=== PATIENT | female | born 1955 | race Caucasian/White ===

== ENCOUNTER 2018-11-27 13:45 | Emergency (ER) | payer BC ==
[~2018-11-27] VITALS: Ht 165.1 cm; Wt 71.7 kg
[2018-11-27] MEDS ORDERED: ETOMIDATE IV SOLN 20 MG/10 ML VIAL IV ONE ×2 (13:47→15:30)
[2018-11-27] MEDS ORDERED: ROCURONIUM 10 MG/ML 5 ML SYRINGE IV ONE ×2 (13:47→15:30)
[2018-11-27] MEDS ORDERED: NS IV 1000 ML 1,000 ML IV SCH ×2 (14:03→14:20)
--- NOTE | 2018-11-27 14:11 | ED Cardiac General ---
History of Present Illness General Stated Complaint: SOB Source: patient, EMS Exam Limitations: no limitations (AURY SIMPSON) History of Present Illness Date Seen by Provider: Nov 27, 2018 Time Seen by Provider: 13:56 Initial Comments Patient presents to ER by EMS from [place], [place] with chief complaint she's been feeling chest discomfort nurse in her chest radiating to her left chest. She is also felt tired and short of breath. Recently she was put on amoxicillin outpatient for a pneumonia and told she had a new onset CHF. She is on Lasix and potassium and has a cardiac catheterization scheduled tomorrow with Dr. Yeager. She denies ever having a heart attack. She does have diabetes and takes Levemir twice a day but she's not taken it today. Blood sugar was over 300 per EMS. She says she has mild shortness of breath visual cough nonproductive. No fevers or chills. Her brother relates that she had a recent stay at [facility] for a impacted gallstone and they had put a stent in and do an ERCP and she's been a couple days there. Also some of the dye she received ended up and some kind of an acute kidney injury. (AURY SIMPSON) Allergies and Home Medications Allergies Coded Allergies: codeine (Verified Adverse Reaction, Unknown, 11/27/18) morphine (Verified Adverse Reaction, Unknown, 11/27/18) Patient Home Medication List Home Medication List Reviewed: Yes (AURY SIMPSON) Review of Systems Review of Systems Constitutional: No chills, No fever EENTM: No Blurred Vision, No Double Vision Respiratory: Cough, Shortness of Air (AURY SIMPSON) Physical Exam Vital Signs Vital Signs - First Documented 11/27/18 11/27/18 13:53 15:41 Temp 98.0 Pulse 153 Resp 23 B/P (MAP) 74/59 (64) Pulse Ox 93 O2 Delivery Nasal Cannula O2 Flow Rate 2.00 FiO2 100 (LING BRANCH APRN) Vital Signs Capillary Refill : (AURY SIMPSON) Height, Weight, BMI Height: '" Weight: lbs. oz. kg; BMI Method: General Appearance: Anxious, Moderate Distress HEENT: PERRL/EOMI, Pharynx Normal; No Moist Mucous Membranes Neck: Full Range of Motion, Normal Inspection, Non Tender, Supple Respiratory: Chest Non Tender, Lungs Clear, Accessory Muscle Use, Decreased Breath Sounds, Respiratory Distress (mild to moderate) Cardiovascular: No JVD, No Murmur, Normal Peripheral Pulses, Irregularly Irregular, Other (1+ pitting peripheral edema at the ankle bilateral) Gastrointestinal: Normal Bowel Sounds, Non Tender, Soft Extremity: Normal Capillary Refill, Normal Inspection, Non Tender Neurologic/Psychiatric: Alert, Oriented x3 Skin: Warm/Dry, Pallor (AURY SIMPSON) Focused Exam Lactate Level 11/27/18 16:05: Lactic Acid Level 5.17*H (LING BRANCH APRN) Lactic Acid Level Laboratory Tests Test 11/27/18 16:05 Lactic Acid Level 5.17 MMOL/L (0.50-2.00) *H (LING BRANCH APRN) Procedures/Interventions Lumen: triple Central Line Procedure: betadine prep, sterile drapes applied, sterile dressing applied Position: internal jugular (R) Anesthesia: local Volume Anesthetic (ccs): 3 Complications: none Post Position: sutured, good blood return, position confirmed w/ CXR (LING BRANCH APRN) Reason for Intubation: airway protection Date of ETT Placement: Nov 27, 2018 Time of ETT Placement: 15:30 Intubation Method: orotracheal Tube Size: 7.5 Medications: Etomidate, Rocuronium (potassium 5.4) Positive End Tide CO2: Yes Breath Sounds after Intubation: bilateral-equal Intubation Complications: no complications Post Intubation Xray: Yes ETT about 1 cm below the pham. IJ in good position in the SVC Risks, benefits alternatives were explained the patient and she consented verbally. Discussed with mother and brother at bedside and they consented as well. Patient was reclined in the supine position and oxygenated with bag-valve- mask at 100% and got her up to 95%. We gave the etomidate followed by the rocuronium chosen because of the elevated potassium. The patient was sedated and paralyzed. We then made 1 pass with the suction Juanjo getting no secretions. With an open the mouth and usual fashion using a 3 Robby obtained a good view of 90% of the vocal cords and pass a 7-1/2 ET tube watching go past the vocal cords. We then halted the progress at 23 at the lips. We inflated the cuff and got a good waveform on end-tidal capnography. She thought the tube with each exhalation. We had good breath sounds bilaterally and no breath sounds over the epigastric region. Her oxygen sats went up to 99%. The lowest they got down to was 91%. Tube was secured and chest x-ray called for. Chest X ray demonstrates the tube advanced just past the pham about 1 senna meter. Radiology recommends we withdraw 47 m. We are going to withdraw 3 cm. (AURY SIMPSON) Progress/Results/Core Measures Results/Orders Lab Results Laboratory Tests Test 11/27/18 14:04 11/27/18 14:13 11/27/18 16:05 11/27/18 16:12 Range/Units White Blood Count 11.5 H 4.3-11.0 10^3/uL Red Blood Count 2.86 L 4.35-5.85 10^6/uL Hemoglobin 8.4 L 11.5-16.0 G/DL Hematocrit 27 L 35-52 % Mean Corpuscular Volume 96 80-99 FL Mean Corpuscular Hemoglobin 29 25-34 PG Mean Corpuscular Hemoglobin Concent 31 L 32-36 G/DL Red Cell Distribution Width 13.3 10.0-14.5 % Platelet Count 276 130-400 10^3/uL Mean Platelet Volume 12.4 H 7.4-10.4 FL Neutrophils (%) (Auto) 76 H 42-75 % Lymphocytes (%) (Auto) 15 12-44 % Monocytes (%) (Auto) 9 0-12 % Eosinophils (%) (Auto) 0 0-10 % Basophils (%) (Auto) 0 0-10 % Neutrophils # (Auto) 8.7 H 1.8-7.8 X 10^3 Lymphocytes # (Auto) 1.7 1.0-4.0 X 10^3 Monocytes # (Auto) 1.0 0.0-1.0 X 10^3 Eosinophils # (Auto) 0.0 0.0-0.3 10^3/uL Basophils # (Auto) 0.0 0.0-0.1 10^3/uL Prothrombin Time 15.9 H 12.2-14.7 SEC INR Comment 1.3 0.8-1.4 Activated Partial Thromboplast Time 30 24-35 SEC D-Dimer 2.69 H 0.00-0.49 UG/ML Sodium Level 136 135-145 MMOL/L Potassium Level 5.4 H 3.6-5.0 MMOL/L Chloride Level 104 98-107 MMOL/L Carbon Dioxide Level 17 L 21-32 MMOL/L Anion Gap 15 H 5-14 MMOL/L Blood Urea Nitrogen 32 H 7-18 MG/DL Creatinine 1.99 H 0.60-1.30 MG/DL Estimat Glomerular Filtration Rate 25 BUN/Creatinine Ratio 16 Glucose Level 247 H 70-105 MG/DL Calcium Level 9.0 8.5-10.1 MG/DL Corrected Calcium 9.5 8.5-10.1 MG/DL Magnesium Level 1.9 1.8-2.4 MG/DL Total Bilirubin 1.2 H 0.1-1.0 MG/DL Aspartate Amino Transf (AST/SGOT) 57 H 5-34 U/L Alanine Aminotransferase (ALT/SGPT) 51 0-55 U/L Alkaline Phosphatase 198 H 40-136 U/L Myoglobin 88.1 10.0-92.0 NG/ML Troponin I 0.341 *H <0.028 NG/ML B-Type Natriuretic Peptide 892.9 H <100.0 PG/ML Total Protein 6.0 L 6.4-8.2 GM/DL Albumin 3.4 3.2-4.5 GM/DL Glucometer 273 H 70-110 MG/DL Lactic Acid Level 5.17 *H 0.50-2.00 MMOL/L Urine Color YELLOW Urine Clarity SLIGHTLY CLOUDY Urine pH 5 5-9 Urine Specific [place] 1.025 H 1.016-1.022 Urine Protein 4+ NEGATIVE Urine Glucose (UA) 1+ H NEGATIVE Urine Ketones NEGATIVE NEGATIVE Urine Nitrite NEGATIVE NEGATIVE Urine Bilirubin NEGATIVE NEGATIVE Urine Urobilinogen NORMAL NORMAL MG/DL Urine Leukocyte Esterase 1+ H NEGATIVE Urine RBC (Auto) 2+ H NEGATIVE Urine RBC 2-5 H /HPF Urine WBC 2-5 /HPF Urine Squamous Epithelial Cells 5-10 /HPF Urine Crystals PRESENT H /LPF Urine Amorphous Sediment FEW MIRA URATES H /LPF Urine Bacteria NONE /HPF Urine Casts NONE /LPF Urine Mucus NEGATIVE /LPF Urine Culture Indicated NO (LING BRANCH APRN) Medications Given in ED Current Medications Medications Dose Ordered Sig/Joseph Route Start Time Stop Time Status Last Admin Dose Admin Aspirin 324 mg ONCE ONCE PO 11/27/18 14:15 11/27/18 14:16 DC 11/27/18 14:20 324 MG Azithromycin 500 mg/Sodium Chloride 250 ml @ 250 mls/hr ONCE ONCE IV 11/27/18 16:15 11/27/18 17:14 DC 11/27/18 16:27 250 MLS/HR Cefepime HCl 2000 mg/Sodium Chloride 50 ml @ 100 mls/hr ONCE ONCE IV 11/27/18 16:15 11/27/18 16:44 DC 11/27/18 16:27 100 MLS/HR Digoxin 0.5 mg ONCE ONCE IV 11/27/18 15:00 11/27/18 15:02 DC 11/27/18 15:24 0.5 MG Diltiazem HCl 10 mg ONCE ONCE IVP 11/27/18 14:30 11/27/18 14:31 DC 11/27/18 14:28 10 MG Enoxaparin Sodium 70 mg ONCE ONCE SC 11/27/18 15:00 11/27/18 15:02 DC 11/27/18 15:17 70 MG Fentanyl Citrate 25 mcg ONCE ONCE IVP 11/27/18 15:30 11/27/18 15:31 DC 11/27/18 15:31 25 MCG Ketamine HCl 100 mg/Sodium Chloride 101 ml @ 0 mls/hr Q0M ONCE IV 11/27/18 17:45 11/27/18 17:46 DC 11/27/18 17:50 30 MLS/HR (LING BRANCH APRN) Vital Signs/I&O 11/27/18 11/27/18 11/27/18 13:53 13:53 15:41 Temp 98.0 Pulse 153 67 Resp 23 18 B/P (MAP) 74/59 (64) Pulse Ox 93 97 99 O2 Delivery Nasal Cannula Nasal Cannula O2 Flow Rate 2.00 2.00 FiO2 100 (LING BRANCH APRN) Progress Progress Note #1: Time: 16:24 Progress Note I don't have any previous creatinine levels to compare to her 1.99 today however with her history of acute kidney injury in the last month or 2 after her impacted gallstone it's possible that this is chronic versus an acute kidney injury. Progress Note #2: Time: 17:23 Progress Note Patient's blood pressure again went down and the heart rate in the 50s so we stopped the Cardizem drip. Blood pressure continues to dwindle low with a map of 55- 60 so we are going to go ahead and start the Levophed. Also ordered ketamine for sedation which may help support the blood pressure at 0.5 mg/m. Pharmacy is mixing it 1 mg per mL. (AURY SIMPSON) Initial ECG Impression Date: Nov 27, 2018 Initial ECG Impression Time: 14:03 Initial ECG Rate: 163 Initial ECG Rhythm: A Fib/Flutter Initial ECG Intervals: QT (488) Initial ECG Impression: Atrial Fibrillation w/RVR Comment Rapid rate makes it difficult to ascertain if there is any significant ST changes. EKG : EKG Time: 15:50 Rate: 68 Rhythm: Normal Sinus Intervals: QT (520) ECG Comparisson: Changed ECG Impression: Normal, Nonspecific Changes Comment Normal sinus rhythm, low voltage, no significant ST elevation or depression. (AURY SIMPSON) Diagnostic Imaging Diagonstic Imaging: Xray Plain Films/CT/US/NM/MRI: chest (1v) Comments NAME: KODY SERRA [facility] REC#: [id number] PHYSICIAN: AURY SIMPSON MD CC: SHERRY MARCUS MD; AURY SIMPSON Page 1 of 1 RADIOLOGY REPORT [facility] [place], [place] CC: SHERRY MARCUS MD; AURY SIMPSON Page 1 of 1 RADIOLOGY REPORT NAME: KODY SERRA [facility] REC#: [id number] PT STATUS: REG ER : 1955 PHYSICIAN: AURY SIMPSON MD ADMIT DATE: 11/27/18/ER Signed Date of Exam: 11/27/18 CHEST 1 VIEW, AP/PA ONLY INDICATION: Shortness of air and low blood pressure. TIME OF EXAM: 02:42 p.m. No prior studies are available for comparison. The heart appears to be enlarged. There is central congestion. There are bibasilar pulmonary infiltrates and bilateral effusions, greater on the right. Upper lung cevallos are clear. No pneumothorax is seen. IMPRESSION: Cardiomegaly and central congestion with bibasilar infiltrates and effusions, right greater. Dictated by: Dictated on workstation # [id number] Dict: 11/27/18 1452 Trans: 11/27/18 1546 Interpreted by: SHERRY MARCUS MD Electronically signed by: SHERRY MARCUS MD 11/27/18 1546 Diagonstic Imaging: Xray Plain Films/CT/US/NM/MRI: chest (1v) Comments NAME: PONCEKODY Brown [facility] REC#: [id number] PHYSICIAN: AURY SIMPSON MD CC: JANEL STRANGE MD; AURY SIMPSON Page 1 of 1 RADIOLOGY REPORT [facility] [place], [place] CC: JANEL STRANGE MD; AURY SIMPSON Page 1 of 1 RADIOLOGY REPORT NAME: PONCEKODY Brown [facility] REC#: [id number] PT STATUS: REG ER : 1955 PHYSICIAN: AURY SIMPSON MD ADMIT DATE: 11/27/18/ER Signed Date of Exam: 11/27/18 CHEST 1 VIEW, AP/PA ONLY INDICATION: Central line placement. Frontal chest obtained at 3:26 p.m. and compared to 11/27/2018 at 2:43 p.m. FINDINGS: There is a new right IJ central catheter tip overlying the upper SVC. There is no change in bibasilar infiltrates, right greater than left, as well as right pleural effusion. There is no pneumothorax following line placement. IMPRESSION: Bibasilar infiltrates, right greater than left, are again noted with right pleural effusion. New right IJ central catheter tip overlies the upper SVC. No pneumothorax following device placement. Dictated by: Dictated on workstation # [id number] Dict: 11/27/18 1532 Trans: 11/27/18 1647 Interpreted by: JANEL STRANGE MD Electronically signed by: JANEL STRANGE MD 11/27/18 1647 Diagonstic Imaging: Xray Plain Films/CT/US/NM/MRI: chest (1v) Comments NAME: KODY SERRA REC#: [id number] PHYSICIAN: AURY SIMPSON MD CC: CLARISSA ZACARIAS MD; AURY SIMPSON Page 2 of 2 RADIOLOGY REPORT [facility] [place] [place] CC: CLARISSA ZACARIAS MD; AURY SIMPSON Page 1 of 2 RADIOLOGY REPORT NAME: KODY SERRA [facility] REC#: [id number] PT STATUS: REG ER : 1955 PHYSICIAN: AURY SIMPSON MD ADMIT DATE: 11/27/18/ER Signed Date of Exam: 11/27/18 CHEST 1 VIEW, AP/PA ONLY INDICATION: Respiratory failure. EXAMINATION: Portable chest at 4 PM. FINDINGS: There is an ET tube with the tip selectively intubating the right mainstem bronchus. The NG tube enters the stomach. The right IJ central line tip projects over the SVC. There is a moderate sized right pleural effusion. There is some volume loss at the left lung base. There is cardiomegaly with pulmonary vascular congestion. IMPRESSION: Pulmonary venous hypertension with right pleural effusion and left basilar atelectasis. There has been interval placement of an endotracheal tube which is selectively intubating the right mainstem bronchus and needs to be withdrawn 4 cm to ensure adequate ventilation of both lungs. CRITICAL FINDING Report given to Dr. Simpson at 4:31 p.m. 11/27/2018/cb Dictated by: Dictated on workstation # [id number] Dict: 11/27/18 1607 Trans: 11/27/18 170 Interpreted by: CLARISSA ZACARIAS MD Electronically signed by: CLARISSA ZACARIAS MD 11/27/181705 Reviewed: Reviewed by Me Diagonstic Imaging: Xray Plain Films/CT/US/NM/MRI: chest (1v) Comments ET tube seen about 2 cm above the pham in good position. Good aeration both lungs with no interval pneumothorax. Reviewed: Reviewed by Me (AURY SIMPSON) Consults : Consulting Physician: OLENA YEAGER MD FACP FAC CCDS Consults Notes Discussed the case multiple times with Dr. Weber. He initially recommended that we do the Cardizem and then agreed with the central line and Levophed or dopamine as necessary to keep the blood pressure up. Finally we told him back to advise him of the elevated troponin and the patient would need intubated and since we do not have ICU available here he agrees with shipping the patient. (AURY SIMPSON Madeleine) Critical Care Note Critical Care Start Time: 15:00 Stop Time: 16:00 Total Time (minutes) 60 Progress Patient's blood pressure came in kind of soft in the 100 systolic range but continued to get worse even before we started the Cardizem. We have already had 2 IVs large-bore in either arm started at 2 L of saline running at flush. Her blood pressure continued to dwindle we gave her the bolus of Cardizem 10 mg. We started her on the drip continue the fluids and tried to reclining her into Trendelenburg but the patient would not tolerate Trendelenburg position. Initial EKG demonstrated a rapid probably atrial fibrillation with rapid ventricular response. Patient has no known history of atrial fibrillation and her symptoms just started today . Patient has a known history of CHF but she had no JVD or hepatojugular reflex or palpable pedal edema or crackles auscultated. Ultrasound of her right IJ demonstrated a plump compressible easily accessible vein demonstrating she was not dehydrated. We explained the risks, benefits and alternatives to central line placement and intubation the patient consented to both. She was satting okay in the mid to low 90s on 3 L by nasal cannula so we went ahead and proceeded with a central line so we can use Levophed as necessary. We have already made consultation with cardiology Dr. Yeager and his initial recommendation was Cardizem. As soon as her blood pressure start taking agreed with Levophed or dopamine with the Cardizem for its vasopressor affects, IV fluids and central line. He also recommended 500 mcg of digoxin IV and since we do not given Eliquis yet Lovenox. The patient was given 324 mg of aspirin when she first arrived. Patient's oxygen saturation began to dip into the upper 80s and 90s and she was having a little harder time breathing but there were no crackles auscultated on the bases. Hepatojugular reflex still not noted. We decided to hold 2 L which would be a 30 mL/kg. When we reclining her again to do the intubation her blood pressure improved up to 100 systolic so we held off on the Levophed. We put an OG tube in after intubation and got a second EKG since she converted to a sinus rhythm about 2-3 minutes prior to our intubation attempt. The EKG did not demonstrate S ST elevation NV. She had a heart rate in the 60s and oxygen saturation in the upper 90s on FiO2 of 1.0. She was intubated and had an OG tube put in and a repeat chest x-ray showed good position. We then obtained urinalysis by Lynn catheter and got blood cultures and since she had a history of being on amoxicillin recently for some outpatient pneumonia we are going to go ahead and cover her with cefepime and azithromycin. D-dimer is pending. We discussed the elevated troponin with Dr. Yeager and we are on ICU diversion here and repeat EKG does not show any ST elevation so he recommends we transport the patient to a higher level of care and since the blood pressures improving and heart rate has come back in a sinus rhythm is recommending we hold off on amiodarone. Lovenox 1 mg/kg SQ. (UARY SIMPSON) Departure Impression Primary Impression: Non-STEMI (non-ST elevated myocardial infarction) Additional Impressions: Atrial fibrillation with rapid ventricular response Respiratory failure, acute Qualified Codes: J96.01 - Acute respiratory failure with hypoxia Airway intubation performed without difficulty Acute kidney injury Disposition: XFER SHT-TRM HOSP Condition: Stable Transfer Time Spoke to Accepting Phy: 16:00 Transfer Progress Notes Discussed the case with Dr. Nieves, grinder set up operator centerless at [facility] and he agrees to accept the patient to the ICU. [facility] not flying right now. We will send by ground ambulance. Transfer Facility: [place], [place]. Method of Transfer: EMS (AURY SIMPSON) Departure-Patient Inst. Referrals: SHERRY MCDONOUGH DO (PCP) Primary Care Physician AURY SIMPSON Nov 27, 2018 14:10 LING BRANCH APRN Nov 27, 2018 18:02
[2018-11-27] MEDS ORDERED: ADENOSINE 6 MG/2 ML (ADENOCARD) VIAL IV ONE (14:15)
[2018-11-27] MEDS ORDERED: ASPIRIN 81 MG CHEW (CHILDREN'S ASA) PO ONE (14:15)
[2018-11-27] MEDS ORDERED: inSUlin (REGULAR) HUMAN 1 UNIT/0.01 ML (CHARGE PER UNIT) SC ONE (14:15)
[2018-11-27 14:20] LABS: BASOPHILS % (AUTO) 0 % (0-10); EOSINOPHILS % (AUTO) 0 % (0-10); HEMATOCRIT 27 % (35-52); HEMOGLOBIN 8.4 G/DL (11.5-16.0); LYMPHOCYTES # (AUTO) 1.7 X 10^3 (1.0-4.0); LYMPHOCYTES % (AUTO) 15 % (12-44); MEAN CORPUSCULAR HEMOGLOBIN 29 PG (25-34); MEAN CORPUSCULAR HGB CONC 31 G/DL (32-36); MEAN CORPUSCULAR VOLUME 96 FL (80-99); MEAN PLATELET VOLUME 12.4 FL (7.4-10.4); MONOCYTES % (AUTO) 9 % (0-12); NEUTROPHILS # (AUTO) 8.7 X 10^3 (1.8-7.8); NEUTROPHILS % (AUTO) 76 % (42-75); PLATELET COUNT 276 10^3/uL (130-400); RED BLOOD COUNT 2.86 10^6/uL (4.35-5.85); RED CELL DISTRIBUTION WIDTH 13.3 % (10.0-14.5); WHITE BLOOD COUNT 11.5 10^3/uL (4.3-11.0)
[2018-11-27] MEDS ORDERED: DILTIAZEM INJECTION 125 MG in NS (IVPB) 100 ML IV SCH (14:30)
[2018-11-27] MEDS ORDERED: DILTIAZEM 25 MG/5 ML INJ (CARDIZEM) VIAL IVP ONE (14:30)
[2018-11-27 14:38] LABS: INR 1.3 (0.8-1.4); PROTHROMBIN TIME PATIENT 15.9 SEC (12.2-14.7)
[2018-11-27 14:53] LABS: ALBUMIN 3.4 GM/DL (3.2-4.5); BILIRUBIN,TOTAL 1.2 MG/DL (0.1-1.0); CREATININE SERUM 1.99 MG/DL (0.60-1.30); MAGNESIUM 1.9 MG/DL (1.8-2.4); POTASSIUM 5.4 MMOL/L (3.6-5.0)
[2018-11-27 14:55] LABS: MYOGLOBIN SERUM 88.1 NG/ML (10.0-92.0)
[2018-11-27] MEDS ORDERED: ENOXAPARIN 80 MG/0.8 ML (LOVENOX) SYR SC ONE (15:00)
[2018-11-27] MEDS ORDERED: DIGOXIN 0.25 MG/ML (LANOXIN) 2 ML AMP IV ONE (15:00)
[2018-11-27] MEDS ORDERED: NOREPINEPHRINE 4 MG in NS (IVPB) 250 ML IV SCH (15:00)
--- NOTE | 2018-11-27 15:00 | Diagnostic Imaging Report ---
INDICATION: Shortness of air and low blood pressure. TIME OF EXAM: 02:42 p.m. No prior studies are available for comparison. The heart appears to be enlarged. There is central congestion. There are bibasilar pulmonary infiltrates and bilateral effusions, greater on the right. Upper lung cevallos are clear. No pneumothorax is seen. IMPRESSION: Cardiomegaly and central congestion with bibasilar infiltrates and effusions, right greater. Dictated by: Dictated on workstation # [id number]
[2018-11-27] MEDS ORDERED: fentaNYL INJECTION 100 MCG/2 ML AMP IVP ONE (15:30)
--- NOTE | 2018-11-27 15:35 | Diagnostic Imaging Report ---
INDICATION: Central line placement. Frontal chest obtained at 3:26 p.m. and compared to 11/27/2018 at 2:43 p.m. FINDINGS: There is a new right IJ central catheter tip overlying the upper SVC. There is no change in bibasilar infiltrates, right greater than left, as well as right pleural effusion. There is no pneumothorax following line placement. IMPRESSION: Bibasilar infiltrates, right greater than left, are again noted with right pleural effusion. New right IJ central catheter tip overlies the upper SVC. No pneumothorax following device placement. Dictated by: Dictated on workstation # [id number]
--- NOTE | 2018-11-27 15:35 | NUR ---
DR MONTGOMERY, [facility] RT, LEVI RN AT BEDSIDE TO PERFORM INTUBATION. 1538- 20MG ETOMIDATE,50MG ROCURONIUM ADMINISTERED AT THIS TIME 1541- FIRST ATTEMPT AT INTUBATION, SUCCESSFUL. BILATERAL BREATH SOUNDS, FOG IN TUBE, END TITAL 31. 7.5 ET TUBE, 23CM AT THE LIPS. 1547- 16FR OG TUBE PLACED 1635- ET TUBE PULLED BACK TO 22CM AT THE LIP
[2018-11-27 15:41] VITALS: BP 94/49
[2018-11-27] MEDS ORDERED: AZITHROMYCIN INJECTION 500 MG in NS (IVPB) 250 ML IV ONE (16:15)
[2018-11-27] MEDS ORDERED: CEFEPIME INJECTION 2,000 MG in NS (IVPB) 50 ML IV ONE (16:15)
[2018-11-27 16:18] LABS: BILIRUBIN,URINE NEGATIVE (NEGATIVE); CLARITY,URINE SLIGHTLY CLOUDY; COLOR,URINE YELLOW; GLUCOSE, URINE (UA) 1+ (NEGATIVE); KETONES,URINE NEGATIVE (NEGATIVE); LEUKOCYTE ESTERASE ,URINE 1+ (NEGATIVE); NITRITE,URINE NEGATIVE (NEGATIVE); PH,URINE 5 (5-9); PROTEIN,URINE 4+ (NEGATIVE); UROBILINOGEN,URINE NORMAL (NORMAL)
[2018-11-27 16:28] LABS: AMORPHOUS SEDIMENT,UR FEW AMOR URATES /LPF
--- NOTE | 2018-11-27 16:31 | Diagnostic Imaging Report ---
INDICATION: Respiratory failure. EXAMINATION: Portable chest at 4 PM. FINDINGS: There is an ET tube with the tip selectively intubating the right mainstem bronchus. The NG tube enters the stomach. The right IJ central line tip projects over the SVC. There is a moderate sized right pleural effusion. There is some volume loss at the left lung base. There is cardiomegaly with pulmonary vascular congestion. IMPRESSION: Pulmonary venous hypertension with right pleural effusion and left basilar atelectasis. There has been interval placement of an endotracheal tube which is selectively intubating the right mainstem bronchus and needs to be withdrawn 4 cm to ensure adequate ventilation of both lungs. CRITICAL FINDING Report given to Dr. Simpson at 4:31 p.m. 11/27/2018/cb Dictated by: Dictated on workstation # [id number]
--- NOTE | 2018-11-27 17:42 | Diagnostic Imaging Report ---
EXAM: CHEST 1 VIEW, AP/PA ONLY INDICATION: ETT placement. COMPARISON: Chest radiograph from earlier today. FINDINGS: ETT tip is approximately 2.5 cm from the pham. NG tube tip below the [id number]. Right IJ CVC tip mid SVC. Stable moderate sized right pleural effusion and diffuse airspace consolidation throughout the right lung. Left lung is clear. Normal heart size. IMPRESSION: 1. Interval withdrawal of the ETT tip which is now approximately 2.5 cm from the pham. 2. Persistent moderate right pleural effusion and airspace consolidation throughout the right lung. Dictated by: Dictated on workstation # [id number]
[2018-11-27] MEDS ORDERED: KETAMINE INJECTION 100 MG in NS (IVPB) 100 ML IV ONE (17:45)
[2018-11-27 18:35] VITALS: BP 118/53
== END 2018-11-27 18:35 | disposition short-term general hospital (02) ==
LOC: EDUNIT# 13:45 → ER 13:46
DX: I21.4 Non-ST elevation (NSTEMI) myocardial infarction (principal); I48.91 Unspecified atrial fibrillation; J96.01 Acute respiratory failure with hypoxia; N17.9 Acute kidney failure, unspecified; I50.9 Heart failure, unspecified; E11.9 Type 2 diabetes mellitus without complications; Z88.5 Allergy status to narcotic agent; Z87.01 Personal history of pneumonia (recurrent)
CPT/HCPCS: 31500; 36415; 51702; 71045; 80053; 81000; 82962; 83605; 83735; 83874; 83880; 84484; 85025; 85379; 85610; 85730; 87040; 87070; 87205; 93005; 93041; 94799; 99291